=== PATIENT | female | born 1990 | race Hispanic/Latino ===

== ENCOUNTER 2019-01-12 10:41 | Emergency (ER) | payer OTHER ==
[2019-01-12 12:13] LABS: Basophils % (Auto) 0.3 % (0.0-1.8); Eosinophils # (Auto) 0.1 K/mm3 (0.0-0.4); Eosinophils % (Auto) 1.2 % (0.0-4.3); Hematocrit 40.5 % (30.3-42.9); Hemoglobin 13.4 gm/dl (10.1-14.3); Lymphocytes # (Auto) 1.8 K/mm3 (1.2-5.4); Lymphocytes % (Auto) 28.6 % (13.4-35.0); Mean Corpuscular HGB Conc 33 % (30-34); Mean Corpuscular Volume 88 fl (79-97); Monocytes # (Auto) 0.5 K/mm3 (0.0-0.8); Monocytes % (Auto) 7.5 % (0.0-7.3); Platelet Count 263 K/mm3 (140-440); Red Blood Count 4.63 M/mm3 (3.65-5.03); Red Cell Distribution Width 13.9 % (13.2-15.2)
[2019-01-12 12:25] LABS: Alanine Aminotransferase 10 units/L (7-56); Albumin 3.6 g/dL (3.9-5); BUN/Creatinine Ratio 10; Blood Urea Nitrogen 5 mg/dL (7-17); Calcium 8.8 mg/dL (8.4-10.2); Hemolysis Index 3
[2019-01-12 12:37] LABS: Bilirubin,Urine NEG (Negative); Blood,Urine NEG (Negative); Color,Urine Yellow (Yellow); Mucus,Urine 3+ /HPF; Protein,Urine <15 mg/dL mg/dL (Negative)
--- NOTE | 2019-01-12 14:04 | Emergency Department Report ---
ED HPI - General Chief complaint: Abdominal Pain Stated complaint: 11WKS /STOMACH PAIN/VOMITTING Time Seen by Provider: 01/12/19 13:45 Source: patient Mode of arrival: Ambulatory Limitations: No Limitations - History of Present Illness Initial comments: 28-year-old female presents to the ED with left-sided abdominal pain worse since yesterday. Patient states pain has been ongoing throughout her . Patient is currently 11 weeks . Denies vaginal bleeding. Patient reports she has had a normal ultrasound this . Patient states pain feels like contractions OB: Dr Arina PATTERSON Complaint: abdominal pain -: Last night Location: abdomen Radiation: other (across entire abdomen) Severity: moderate Quality: cramping Consistency: intermittent Improves with: none Worsens with: none Associated symptoms: nausea/vomiting. denies: vaginal bleeding, vaginal disc harge Vaginal bleeding: none :: Yes Number of weeks : 11 - Related Data Allergies Allergy/AdvReac Type Severity Reaction Status Date / Time oxycodone Allergy Unknown Verified 01/12/19 10:43 Penicillins Allergy Hives Verified 01/12/19 10:43 [email or web address] [From Ambien] Allergy Unknown Verified 01/12/19 10:43 ED Review of Systems ROS: Stated complaint: 11WKS /STOMACH PAIN/VOMITTING Other details as noted in HPI Comment: All other systems reviewed and negative Constitutional: denies: chills, fever Gastrointestinal: abdominal pain, nausea Genitourinary: other (denies vag bleeding) ED Past Medical Hx - Past Medical History Hx Asthma: Yes - Surgical History Past Surgical History?: No - Social History Smoking Status: Never Smoker Substance Use Type: None ED Physical Exam - General Limitations: No Limitations General appearance: alert, in no apparent distress - Head Head exam: Present: atraumatic, normocephalic - Eye Eye exam: Present: normal appearance - ENT ENT exam: Present: mucous membranes moist - Neck Neck exam: Present: normal inspection - Respiratory Respiratory exam: Present: normal lung sounds bilaterally. Absent: respiratory distress - Cardiovascular Cardiovascular Exam: Present: regular rate, normal rhythm - GI/Abdominal GI/Abdominal exam: Present: soft. Absent: distended, tenderness - Extremities Exam Extremities exam: Present: normal inspection - Neurological Exam Neurological exam: Present: alert, oriented X3 - Psychiatric Psychiatric exam: Present: normal affect, normal mood - Skin Skin exam: Present: warm, dry, intact, normal color ED Course Vital Signs 01/12/19 10:47 Temperature 98.3 F Pulse Rate 77 Respiratory 16 Rate Blood Pressure 111/70 O2 Sat by Pulse 97 Oximetry ED Medical Decision Making - Lab Data Result diagrams: 01/12/19 11:45 01/12/19 11:45 - Radiology Data Radiology results: report reviewed - Medical Decision Making - labs unremarkable - UA negative - US shows live IUP, small subchorionic hemorrhage - pt given return precautions - OB f/u advised - advised to take tylenol for pain - Differential Diagnosis ovarian cyst, round ligament pain, miscarriage Critical care attestation.: If time is entered above; I have spent that time in minutes in the direct care of this critically ill patient, excluding procedure time. ED Disposition Clinical Impression: 11 weeks gestation of , Abdominal pain affecting Disposition: DC-01 TO HOME OR SELFCARE Is pt being admited?: No Condition: Stable Instructions: Abdominal Pain in (ED) Referrals: ANTHONY RODRIGUEZ MD [Staff Physician] - 3-5 Days Time of Disposition: 15:21
--- NOTE | 2019-01-12 15:12 | Ultrasound Report ---
OB ultrasound: Abdominal pain. Transabdominal and endovaginal imaging is performed. The uterus measures approximately 9.2 x 11.8 x 14.6 cm. There is an cramer intrauterine gestation having a crown-rump length of 49 mm equivalent to an 11 week 5 day gestation. There is heart motion of 161 beats per minute. A small irregular inhomogeneously hypoechoic collection is identified anterior to the sac measuring approximately 2 cm. The left ovary measures 4.1 and the right ovary measures 3.7 cm in size. Both appear echogenically unremarkable. No free fluid. Impression: Viable cramer IUP with small subchorionic hemorrhage.
--- NOTE | 2019-01-12 15:12 | Ultrasound Report ---
OB ultrasound: Abdominal pain. Transabdominal and endovaginal imaging is performed. The uterus measures approximately 9.2 x 11.8 x 14.6 cm. There is an cramer intrauterine gestation having a crown-rump length of 49 mm equivalent to an 11 week 5 day gestation. There is heart motion of 161 beats per minute. A small irregular inhomogeneously hypoechoic collection is identified anterior to the sac measuring approximately 2 cm. The left ovary measures 4.1 and the right ovary measures 3.7 cm in size. Both appear echogenically unremarkable. No free fluid. Impression: Viable rcamer IUP with small subchorionic hemorrhage.
[2019-01-12 15:34] VITALS: BP 133/80
== END 2019-01-12 15:34 | disposition home or self-care (01) ==
LOC: ED 10:41
DX: O26.891 Other specified pregnancy related conditions, first trimester (principal); R10.9 Unspecified abdominal pain; O99.511 Diseases of the respiratory system complicating pregnancy, first trimester; J45.909 Unspecified asthma, uncomplicated; Z88.5 Allergy status to narcotic agent; Z88.0 Allergy status to penicillin; Z88.8 Allergy status to other drugs, medicaments and biological substances; Z3A.11 11 weeks gestation of pregnancy
CPT/HCPCS: 36415; 76801; 76817; 80053; 81001; 84702; 85025